=== PATIENT | female | born 1945 | race Caucasian/White ===

== ENCOUNTER → 2016-07-25 | Outpatient (CLI) | payer OTHER ==
[~2016-07-25] MED LIST: LIDOCAINE 1% 300 MG/30 ML SDV ONE; MIDAZOLAM 2 MG/2 ML VIAL ONE; NA BICARBONATE 50 MEQ/50 ML VIAL ONE; NS 1,000 ML IV SCH; fentaNYL 100 MCG/2 ML INJ ONE
== END ==
LOC: FIMAGING 09:27
PROVIDERS: ATTEND Internal Medicine Hematology & Oncology
PROC: 0JBC3ZX Excision of Pelvic Region Subcutaneous Tissue and Fascia, Percutaneous Approach, Diagnostic (ICD-10-PCS; principal; 2016-07-25)
DX: C79.89 Secondary malignant neoplasm of other specified sites (principal); Z85.038 Personal history of other malignant neoplasm of large intestine
CPT/HCPCS: J2250; J3010

== ENCOUNTER 2016-08-13 12:31 | Observation (INO) | payer OTHER ==
--- NOTE | 2016-08-12 16:28 | PDGENHP ---
History & Physical Outpatient Chief Complaint: metastatic colon cancer History of Present Illness: ANNA Riggins is a 71 year old woman with metastatic colon cancer, originally diagnosed in 2015. She had a recent paracentesis and biopsy on 07/25/16 which was positive for metastatic colon cancer. She is scheduled to start chemotherapy on 08/14/16. She presents for power port placement. She had a port on the right side previously placed by Dr. Yvette Abdi. Pertinent Past, Social, Family History: Past Medical: colon cancer, SBO. Past surgical: port placement, right hemicolectomy. Allergies: NKDA. Family history : pancreatitis. Social history: She reports using alcohol daily. She denies tobacco or recreational drug use. Relevant Physical Exam: General: Pleasant, well-nourished and well-groomed woman in no acute distress. HENT: Normocephalic, no gross hearing deficits, mucous membranes moist. Neck: Trachea midline. Lungs: Clear to auscultation bilaterally, No increased work of breathing. Cardiac: Regular rate, no peripheral edema. Neuro: grossly intact. Skin: Warm and dry. MSK: Normal gait and normal nails. Psych: Mood and affect normal Cardiorespiratory Assessment: 71yo F with metastatic colon cancer. She will require a port for chemotherapy. We will attempt port placement on the left side. We discussed that the benefit of port placement includes easier access for chemotherapy. We discussed the risks including but not limited to stroke, heart attack, , blood clots, infection, bleeding, and pneumothorax. We discussed that if the port becomes infected it will need to be removed. She had her questions answered to her satisfaction.
[2016-08-13] MEDS ORDERED: LR 1,000 ML IV SCH (12:51)
[2016-08-13] MEDS ORDERED: ceFAZolin 2 GM/DEXTROSE 100 ML IV ONE (12:51)
[2016-08-13] MEDS ORDERED: LIDOCAINE 1% 2 ML INJ ONE (13:04)
--- NOTE | 2016-08-13 13:12 | PDHPUP ---
History & Physical Update H&P update statement: This history and physical update is based on an assessment of the patient which was completed after admission or registration (within 24 hours), but prior to the surgery/procedure. H&P update: H&P reviewed & patient examined, no change in patient's condition since H&P completed
--- NOTE | 2016-08-13 13:14 | POSTOPPROG ---
Post Op Note Date of Operation: 08/13/16 Surgeon: Daksha Chambers Anesthesiologist: kilo Pre-op Diagnosis: metastatic colon cancer Post-op Diagnosis: same Indication: 71 yo with colon cancer, needs port for chemo Procedure: port Inf/Abcess present in the surg proc area at time of surgery?: No EBL: Minimal
[2016-08-13] MEDS ORDERED: BUPIVACAINE 0.5% 30 ML SDV ONE (13:41)
--- NOTE | 2016-08-13 13:51 | PDANEPAE ---
ANE History of Present Illness Colon Ca ANE Past Medical History - Cardiovascular History Hx Hypertension: No Hx Arrhythmias: No Hx Chest Pain: No Hx Coronary Artery / Peripheral Vascular Disease: No Hx CHF / Valvular Disease: No Hx Palpitations: No - Pulmonary History Hx COPD: No Hx Asthma/Reactive Airway Disease: No Hx Recent Upper Respiratory Infection: No Hx Oxygen in Use at Home: No - Endocrine History Hx Diabetes: No Hypothyroid: No Hyperthyroid: No - Cancer History Hx Cancer: Yes - GI History Hx Gastrointestinal Disorders: Yes - Chronic Pain History Chronic Pain: No ANE Review of Systems - Exercise capacity Exercise capacity: >=4 METS - Systems Constitutional: Reports: no symptoms EENMT: Reports: no symptoms Cardiac: Reports: no symptoms Respiratory: Reports: no symptoms Gastrointestinal: Reports: no symptoms Genitourinary: Reports: no symptoms Muscolosketal: Reports: no symptoms Skin: Reports: no symptoms Neurological: Reports: no symptoms, numbness ANE Patient History - Allergies Allergies/Adverse Reactions: No Known Allergies Allergy (Verified 11/05/14 21:10) - Home Medications Home Medications: Herbals/Supplements -Info Only 1 ea PO DAILY 10/19/14 [Last Taken 08/13/16 08:30 ] - NPO status NPO Since - Liquids (Date): 08/13/16 NPO Since - Liquids (Time): 03:39 NPO Since - Solids (Date): 08/12/16 - Anes Hx Anes Hx: no prior problems - Smoking Hx Smoking Status: Former smoker - Alcohol Use Alcohol Use: Occasionally - Family Anes Hx Family Anes Hx: none ANE Labs/Vital Signs - Vital Signs Blood Pressure: 120/82 Heart Rate: 94 Respiratory Rate: 14 O2 Sat (%): 92 Height: 162.56 cm Weight: 170 g ANE Physical Exam - Airway Neck exam: FROM Mallampati Score: Class 3 Mouth exam: normal dental/mouth exam - Pulmonary Pulmonary: no respiratory distress - Cardiovascular Cardiovascular: regular rate and rhythym - ASA Status ASA Status: III (Cancer) ANE Anesthesia Plan Anesthesia Plan: GA w LMA
[2016-08-13] MEDS ORDERED: MIDAZOLAM 2 MG/2 ML VIAL IVP ONE (13:58)
[2016-08-13] MEDS ORDERED: fentaNYL 100 MCG/2 ML INJ ONE (14:11)
[2016-08-13] MEDS ORDERED: PROPOFOL/EMULSION 500 MG/50 ML BOTTLE IV ONE (14:12)
[2016-08-13] MEDS ORDERED: DEXAMETHASONE 4 MG/ML VIAL ONE (15:05)
[2016-08-13] MEDS ORDERED: ONDANSETRON 4 MG/2 ML VIAL ONE (15:05)
[2016-08-13] MEDS ORDERED: OXYCODONE/APAP 5/325 TAB PO PRN (15:12)
[2016-08-13] MEDS ORDERED: HYDROCODONE/APAP 5/325 TAB PO PRN (15:12)
[2016-08-13] MEDS ORDERED: LR 500 ML IV PRN (15:12)
[2016-08-13] MEDS ORDERED: PROMETHAZINE HCL 25 MG/ML INJ IVP PRN (15:12)
[2016-08-13] MEDS ORDERED: fentaNYL 100 MCG/2 ML INJ IVP PRN (15:12)
[2016-08-13] MEDS ORDERED: NALOXONE HCL 0.4 MG/ML INJ IVP PRN (15:12)
[2016-08-13] MEDS ORDERED: ONDANSETRON 4 MG/2 ML VIAL IVP PRN (15:12)
[2016-08-13] MEDS ORDERED: ACETAMINOPHEN 500 MG TAB PO PRN (15:12)
--- NOTE | 2016-08-13 16:19 | POSTANESTH ---
Post Anesthetic Evaluation Cardiovascular Status: Normal, Stable Respiratory Status: Normal, Stable Level of Consciousness/Mental Status: Can Participate in Eval Pain Control: Adequate, Prn Tx Ordered Complications Possibly Related to Anesthesia: None Noted
[2016-08-13] MEDS ORDERED: IBUPROFEN 200 MG TAB PO PRN (20:51)
[2016-08-13] MEDS ORDERED: ACETAMINOPHEN 325 MG TAB PO PRN (20:51)
--- NOTE | 2016-08-14 05:19 | GOP ---
[f rep st] OPERATIVE REPORT DATE OF OPERATION: 08/13/2016 SURGEON: Daksha Chambers MD ANESTHESIA: General. ANESTHESIOLOGIST: Khadijah Valenzuela MD PREOPERATIVE DIAGNOSIS: Metastatic colon cancer. POSTOPERATIVE DIAGNOSIS: Metastatic colon cancer. PROCEDURE PERFORMED: Left subclavian PowerPort placement. FINDINGS: Tip of the catheter in the SVC. SPECIMENS: None. ESTIMATED BLOOD LOSS: 10 cc. INDICATIONS: The patient is a 71-year-old with metastatic colon cancer. She will require a port fo r chemotherapy. DESCRIPTION OF PROCEDURE: The patient was brought into the operating room, placed supine on the tab le and general anesthesia was administered. Her bilateral chest and neck were prepped and draped in the usual sterile fashion. I infiltrated the area with 0.5% Marcaine prior to making incisions. I used the large bore needle to access the subclavian vein with dark return of blood flow on the 2nd attempt. I threaded the guidewire and removed the needle. Placement was confirmed with fluoroscopy . I created a pocket to accommodate the port in the left chest. [facility] Under fluoroscopy, I measured the port and cut it to size. Using the Seldinger technique, I placed a dilator and sheath over the wire. I removed the wire and the dilator. I threaded the ca theter through the sheath and peeled away the sheath. Placement was confirmed with fluoroscopy. Th ere was no kinking. The port withdrew blood easily and was flushed with heparin. The pocket was cl osed with 3-0 Vicryl followed by 4-0 Monocryl. Dermabond applied. She was awakened in the operatin g room, extubated, transferred to PACU in stable condition. Her post procedure chest x-ray showed the port in good position, but there was a very small pneumoth orax. I will keep her for an additional 4 hours and see if the pneumothorax enlarges. If it enlarg es, then I will place a chest tube. If it does not, then the we will monitor her. I re-evaluated her at 8:30 p.m. and her oxygen saturations were lower on room air. Her chest x-ray stable. We will admit her overnight due to her oxygen saturations that I do not think is fully expl ained by the very small pneumothorax and evaluate if the pneumothorax increases. /[id number]/MODL
[2016-08-14 07:28] VITALS: BP 114/66; PULSE 73; RESP 16; TEMP 97.9; O2SAT 95
--- NOTE | 2016-08-14 08:50 | SOAPPROG ---
SOAP Progress Note Assessment/Plan: Assessment: POD#1 s/p L power port placement with L pneumothorax Slightly improved on CXR this am Seen c Dr. Chambers. Dr. Amy egan with starting chemo whenever authorized by insurance D/c home today with repeat CXR on friday May need to go home with supplemental O2 - will evaluate S: feeling crumby overall - "from condition of abdomen". no coughing O: 90% O2 on room air Objective: Vital Signs Temp Pulse Resp BP Pulse Ox 36.6 C 73 16 114/66 95 08/14/16 07:27 08/14/16 07:27 08/14/16 07:27 08/14/16 07:27 08/14/16 07:27 08/13/16 08/14/16 08/15/16 05:59 05:59 05:59 Intake Total 1900 Output Total 10 Balance 1890 ICD10 Worksheet Patient Problems: Problems Problem Status Onset Colon cancer Acute Hemorrhagic ascites Acute Small bowel obstruction Acute Wound abscess Acute
== END 2016-08-14 11:06 | disposition home or self-care (01) ==
LOC: FSGY 12:31 → F3E 20:50
PROVIDERS: ADMIT Surgery; ATTEND Surgery
PROC: 02HV33Z Insertion of Infusion Device into Superior Vena Cava, Percutaneous Approach (ICD-10-PCS; principal; 2016-08-13 14:00)
DX: C18.9 Malignant neoplasm of colon, unspecified (principal)
CPT/HCPCS: 36561; 71010; 76001; G0378; C1788; J0690; J1100; J1642; J2250; J2405; J2704; J3010

== ENCOUNTER → 2016-08-16 | Outpatient (CLI) | payer OTHER | LOC: FIMAGING 12:48 | PROVIDERS: ATTEND Physician Assistant Surgical | DX: J93.83 Other pneumothorax (principal) ==